=== PATIENT | female | born 1990 | race Caucasian/White ===

== ENCOUNTER 2018-10-31 07:30 | Inpatient (IN) | payer MEDICAID, SELFPAY ==
[2016-11-30 11:16] VITALS: BMI 33.2
[2018-10-31] VITALS (12 sets, daily range): BP systolic 111–126; BP diastolic 61–81; PULSE 68–97; RESP 16–18; TEMP 36.2–36.6; O2SAT 96–99; BMI 34.4
[2018-10-31] MEDS: Lactated Ringers 1,000 ML 50 ML IV (08:00)
[2018-10-31] MEDS: Oxytocin 30 units/NS 500 ml 30 UNITS/500 ML IV.SOLN IV (08:27)
[2018-10-31 08:37] LABS: Absolute Lymphocyte Count 1.93 X10^3/uL (0.83-4.51); Absolute Neutrophil Count 7.9 X10^3/uL (2.0-7.7); Basophil# 0.06 X10^3/uL; Basophil% 0.5 % (0-1); Eosinophil# 0.25 X10^3/uL; Eosinophils% 2.2 % (0-5); Hemoglobin 10.1 g/dL (12.0-15.0); Lymphocyte # 1.93 X10^3/ul (4.0); Lymphocyte % 17.1 % (19-41); Mean Corp Hgb Conc 31.6 g/dL (32-36); Mean Corpuscular Hgb 26.1 pg (27.0-32.0); Mean Corpuscular Volume 82.7 fL (81-99); Mean Platelet Vol. 9.7 fl (6.2-12.0); Monocyte# 0.95 X10^3/uL; Monocyte% 8.4 % (0-10); NRBC Flagged by Analyzer 0 % (0-5); Neutrophil # 7.86 X10^3/uL (2.7-7.7); Neutrophil % 69.5 % (47-70); Platelet Count 234 K/mm3 (150-450); RBC Distribution Width CV 15.8 % (11.6-14.6); RBC Distribution Width SD 47.6 fl (35.1-43.9); Red Blood Count 3.87 M/mm3 (4.2-5.4); White Blood Count 11.3 K/mm3 (4.4-11.0)
[2018-10-31] MEDS: Lactated Ringers 500 ML 999 ML IV (11:38)
[2018-10-31] MEDS: fentaNYL-bupivacaine (epidural) 100 ML BAG EPIDURAL (12:38)
[2018-10-31] MEDS: Oxytocin 30 units/NS 500 ml 30 UNITS/500 ML IV.SOLN 334 UNITS IV (13:44)
--- NOTE | 2018-10-31 13:53 | PCM.HP.OB ---
History Date of Admission: 11/30/16 Final CHELY: 11/06/18 Final CHELY Source: US <20 weeks Gestational age: 39 Weeks and 1 Days History of this : This is a 28 year-old, [id number] at 39 1/7 weeks for induction of labor due to maternal discomfort and favorable cervix. She denies any gross vaginal bleeding or leaking of fluid. She has had good movements. This has been complicated to date by anemia, and tobacco use in . She is had a history of 3 previous vaginal deliveries. Had some irregular contractions, some low back pain and some pelvic pressure. Allergies No Known Allergies Allergy (Verified 11/30/16 11:14) Home Medications: Home Medications Pnv No.95/Ferrous Fum/Folic AC [ Vitamins Tablet] 1 each PO DAILY 11/30/16 Acetaminophen [Tylenol] 1,000 mg PO Q8H PRN PRN tablet 12/01/16 Ferrous Sulfate [Iron] 325 mg PO BID 10/31/18 Smoking Status: Heavy Smoker (>10/day) Alcohol: None Number of Fetus(es): 1 History Past Pregnancies: Past Pregnancies Delivery Date Name GA/Weeks Outcome Route Weight Gender Labor Length Anesthesia Delivery Location Provider FOB Expected Infant Delivery Method: Spontaneous Vaginal Review of Systems Constitutional: Denies: Chills, Fever Eyes: Denies: Blurred vision Cardiovascular: Denies: Chest Pain Respiratory: Denies: Cough, Shortness of Breath Hematologic/ Lymphatic: Reports: Anemia. Denies: Easy Bruising, Easy Bleeding Physical Exam General: Alert, Cooperative, No apparent distress Cardiovascular: Regular rate Lungs: Normal air movement Abdomen: Soft, Non Tender, Non-Distended, Gravid, Appropriate for Gestational Age Extremities:: Other - edema1+ Neurological: Cranial nerves II-XII grossly intact IMAGE ASSEMBLER: Vulvar lesions - condyloma noted on labia majora bilaterally Estimated gestational size: Appropriate for gestational size Presentation: Cephalic Cervix Dilation (cm): 3 Station: -1 Effacement (%): 60 Assessment/Plan This is a 28 year-old, 4 para 2-1-0-3 at 39 1/7 weeks for induction of labor. Risk benefits and alternatives to induction been discussed with the patient, consent was signed and she desired to proceed. May have epidural if desires. Estimated weight is less than 4500 g clinically and pelvis clinically adequate to expect vaginal delivery. Patient would like to have tubal ligation. Discussed with her this is permanent and irreversible risk of failure and regret. We also discussed surgical complications. Patient would like to proceed with this. We will proceed if acuity of unit and anesthesia availability allows.
--- NOTE | 2018-10-31 13:59 | PCM.OPRPT ---
Vaginal Delivery Maternal Presentation: Elective Induction Method of Induction: Pitocin, Amniotomy Amniotic Membrane Rupture Type: Artificial Amniotic Fluid Description: Clear Final CHELY: 11/06/18 Final CHELY Source: US <20 weeks Gestational age: 39 Weeks and 1 Days Date of Procedure: 10/31/18 Pre-Operative Diagnosis: labor Post-Operative Diagnosis: same Surgery/ Procedure Performed: Spontaneous Vaginal Delivery Type of Anesthesia: Epidural Description of Procedure: A vigorous female was delivered SAMANTA over intact perineum. Shilpi Rudolph MS3 assisted. The remainder the was delivered with maternal pushing and gentle traction only in less than 15 seconds. The Pitocin infusion was initiated for active management of the third stage. The cord was clamped and cut after 1 minute. The was attended to by the waiting nursing staff. The placenta was delivered spontaneously and intact. The cervix and vagina were intact. Sponge and needle counts were correct. A vaginal sweep was completed by me. Presentation: SAMANTA Placental Delivery Description: Spontaneous Placenta Disposition: [facility] Cord Entanglement: None Drain: - - none Estimated Blood Loss: 300 A gender: Female (1 minute): 8 (5 minute): 9 Episiotomy Description: None Laceration: None Medications given after delivery: IV Pitocin Complications: None
--- NOTE | 2018-10-31 17:00 | FALS_PTH ---
PATIENT: ALBER VIVAS LOC: [facility] U#:[id number] AGE/SX: 28/F ROOM: WP019 RE10/31/[address]: Dr. Valeria Bowens MD : 1990 BED: 1 DIS: 11/01/2018 SPEC #: [id number] RECD: 10/31/18 18:42 STATUS: MELY REOsmany #: [id number] JATIN: 10/31/18 17:[address]: Valeria Bowens DEPT: SURGICAL PATHOLOGY RECD BY: Nina Saenz ENTERED: 11/01/18 09:12 SP TYPE: FALL TUBES OTHR DR: No Primary Care Phys Tissues: Fallopian tube Procedures: Surgery Specimen Level II HEADER OPERATION: Tubal Ligation PRE-OP DIAGNOSIS: Sterilization TISSUE SUBMITTED: Fallopian tube, left with suture MICROSCOPIC DIAGNOSIS Right and left fallopian tubes, bilateral salpingectomies: Two complete segments of fallopian tubes with no pathologic change. AM:ricci 11/02/18 MICROSCOPIC DESCRIPTION Slides are reviewed. GROSS DESCRIPTION Received is one container labeled with the patient's name and designated bilateral fallopian tubes, left with suture. The specimen consists of two fallopian tubes with an average length of 4.8 cm and has an average diameter of 0.6 cm. Both fallopian tubes have normal fimbriated ends. No mass lesions are identified. Search Planner sections are submitted in two cassettes as follows: 1 - right fallopian tube, 2??left fallopian tube. / AM:ricci 11/01/18 TC:4 CPT: 95688 x2
--- NOTE | 2018-10-31 17:34 | PCM.OPRPT ---
Report of Operation Date of Procedure: 10/31/18 Pre-Operative Diagnosis: sterilization request Post-Operative Diagnosis: same Surgery/Procedure Performed:: bilateral salpingectomy Description of Surgical Findings:: normal ovaries and tubes it security administrator: None Type of Anesthesia:: MAC/Supplemental/Local Anesthesiologist: Natividad Maxwell Special Medications: none Specimen's removed: bilateral fallopian tubes Drains: none Estimated Blood Loss (mL): 20 Fluids Replaced: 500cc Description of Procedure: The patient was taken to the operating room where she was prepped and draped in a dorsal supine position. Some local anesthetic was placed under the skin under the umbilicus and a 4 cm incision was made under the umbilicus. This was carried through to underlying layer fascia with the scalpel. The fascia was grasped with Allis clamps and tented up. It was entered sharply with the scalpel and then extended with the Mccullough scissors. It was tagged on both sides. The peritoneum was then tented up and entered sharply. The bowel was tucked away the patient was tucked turned with her right side up and using retractors and a [place] clamp, the fallopian tube was identified and followed out to the fimbriated end. The LigaSure device was then used to clamp seal and transect the antimesenteric portion of the tube back to the insertion along the uterus. Patient was then used to clamp across the insertion of the tube in the uterus, it was sealed and transected. The pedicles were hemostatic. The same procedures performed on the contralateral side. The instruments removed from the abdomen. The fascia was closed with #1 Vicryl in a running standard fashion. The subtenons tissue was reapproximated with a 3-0 Vicryl suture. The skin was closed with Monocryl suture in subcuticular fashion. I performed the entire procedure. Sponge lap and needle counts were correct. Grafts/Implants Used: none - Complications none - Admit VTE Documentation VTE Present on Admission: No VTE Mechan Device Prophylaxis: SCD's VTE Pharm Prophylaxis ordered?: No Reason prophylaxis not ordered:: Procedure Not Indicated
[2018-10-31 18:44] LABS: Pathology Specimen OB SEE PATHOLOGY REPORT
--- NOTE | 2018-10-31 19:19 | NURSING ---
Pt up to RR. Gait steady.
--- NOTE | 2018-10-31 20:20 | NURSING ---
Pt requesting to go outside. Discussed with broker in charge and Dr. Bowens and okay with pt singing out if desires. Pain well controlled and up ad archie. Discussed risks of removing saline lock and pt agree to have removed. Talked with pt about possibly needing to reinsert if needed. Educated on signing out at desk. Pt verbalizes understanding, SL removed.
[2018-10-31] MEDS: Ibuprofen 600 MG Tablet PO (21:00)
[2018-11-01 02:05] VITALS: BP 110/59; PULSE 74; RESP 16; TEMP 36.4; O2SAT 97
[2018-11-01 04:55] VITALS: BP 105/57; PULSE 79; RESP 16; TEMP 36.6; O2SAT 96
[2018-11-01 05:17] LABS: Hemoglobin 8.6 g/dL (12.0-15.0); Mean Corp Hgb Conc 31.9 g/dL (32-36); Mean Corpuscular Hgb 26.5 pg (27.0-32.0); Mean Corpuscular Volume 83.1 fL (81-99); Mean Platelet Vol. 9.6 fl (6.2-12.0); Platelet Count 185 K/mm3 (150-450); RBC Distribution Width CV 15.7 % (11.6-14.6); RBC Distribution Width SD 47.7 fl (35.1-43.9); Red Blood Count 3.25 M/mm3 (4.2-5.4); White Blood Count 11.8 K/mm3 (4.4-11.0)
[2018-11-01] MEDS: Acetaminophen 500 MG Tablet 1000 MG PO (05:17)
--- NOTE | 2018-11-01 08:36 | PCM.PN.OB ---
Subjective: She is seen at bedside, doing well. Patient reports good pain control. Mild lochia. Denies any nausea, vomiting, chest pain, shortness of breath. Patient is ready for DC home today. voiding without difficulty - Physical Exam General: Alert, Oriented x3 Abdomen: Soft, Non-Distended, - - tubal ligation dressing is dry and intact. Fundus is firm Extremities: No Calf Tenderness Vital Signs Temp Pulse Resp BP Pulse Ox 97.9 F 79 16 105/57 L 96 11/01/18 04:55 11/01/18 04:55 11/01/18 04:55 11/01/18 04:55 11/01/18 04:55 Oxygen Delivery Method Room Air Weight: 94 kg Body Mass Index (BMI) 34.4 Intake and Output for Last 24 Hours 10/30/18 10/31/18 11/01/18 23:59 23:59 23:59 Intake Total 2895.35 / 2895.35 Output Total 900 / 900 Balance 1994.35 / 1994.35 Laboratory Tests Past 24 Hrs 10/31/18 10/31/18 11/01/18 08:00 08:00 05:00 WBC 11.3 H 11.8 H RBC 3.87 L 3.25 L Hgb 10.1 L 8.6 L Hct 32.0 L 27.0 L MCV 82.7 83.1 MCH 26.1 L 26.5 L MCHC 31.6 L 31.9 L RDW Std Deviation 47.6 H 47.7 H RDW Coeff of Alicia 15.8 H 15.7 H Plt Count 234 185 MPV 9.7 9.6 Immature Gran % (Auto) 2.300 H Neut % (Auto) 69.5 Lymph % (Auto) 17.1 L [place] % (Auto) 8.4 Eos % (Auto) 2.2 Baso % (Auto) 0.5 Absolute Neuts (auto) 7.9 H Absolute Lymphs (auto) 1.93 Nucleated RBC % 0 Blood Type A POSITIVE Antibody Screen NEGATIVE Medical Necessity - Tobacco Use Smoking Status: Heavy Smoker (>10/day) Assessment/Plan day #1, postop day #1 from a tubal ligation Routine care Pain management DC home today
--- NOTE | 2018-11-01 08:39 | DCINST_ITS ---
Discharge Diet: No Restrictions Discharge Activity: Return to Normal Activity, May not drive while taking narcotic pain medications., May Shower May resume sexual activity in: 4-6 weeks Lifting Restrictions: 20 Additional Activity Instructions:: Nothing in the vagina for 4-6 weeks. You may return to work/school in 6 weeks. Call your doctor if your incision/area has: Continuous Slow Oozing, Sudden Increased Bleeding, Increased Pain/ Swelling, Increased Redness, Foul Smelling Discharge Remove Dressing in (days):: 2 - days Cleanse incision/area with: Keep Dressing Clean & Dry, - - when dressing of may let soap and water run over incision site - dab to dry Additional Instructions: If you experience any of the following, contact your healthcare provider. * Bleeding that soaks a pad every hour for 2 hours * Fever 100.4 or higher * Unrelieved incision or abdominal pain * Swelling, redness, discharge or bleeding from your incision or episiotomy site * Your incision begins to separate * Problems urinating (including inability to urinate or burning while urinating). * Visual changes * Severe headache * Flu-like symptoms * Pain or redness in one of both of your breasts * Pain, warmth, tenderness or swelling in your legs, especially the calf area * Frequent nausea and vomiting * Symptoms of depression or anxiety If you experience any of the following, call 911 or go to the nearest Emergency Room. * Chest pain * Problems breathing * Seizure activity * Partial or complete paralysis of a body part, slurred speech, weakness or drooping of the face, or a sudden inability to walk or hold your balance Allergies/Adverse Reactions: Allergies No Known Allergies Allergy (Verified 11/30/16 11:14) Medications to take at Discharge Pnv No.95/Ferrous Fum/Folic AC [ Vitamins Tablet] 1 each PO DAILY 11/30/16 Acetaminophen [Tylenol] 1,000 mg PO Q8H PRN PRN tablet 12/01/16 Ferrous Sulfate [Iron] 325 mg PO BID 10/31/18 Ibuprofen [Motrin] 600 mg PO Q6H PRN PRN #30 tab 11/01/18 The following prescriptions were given: Ibuprofen [Motrin] 600 mg PO Q6H PRN PRN #30 tab PRN Reason: Mild Pain (-04/23) Transmission Status: Pending to [facility]/pharmacy #[id number] When: Call to make an appointment with your doctor in 6 weeks. If you had elevated Blood Pressure or 4th degree laceration you will need to be seen in 2 weeks. Please Follow Up With: Valeria Bowens MD Primary Care Physician: Care Physician,No Primary [Primary Care Provider] - Test Results: Test results from this visit will be discussed in further detail at your follow- up appointment, if applicable.
[2018-11-01 08:50] VITALS: BP 139/63; PULSE 83; RESP 16; TEMP 36.1
[2018-11-01 11:53] VITALS: BP 124/82; PULSE 86; RESP 16; TEMP 36.6
[2018-11-01] MEDS: Ibuprofen 600 MG Tablet PO (15:05)
[2018-11-01 16:05] VITALS: BP 111/73; PULSE 88; RESP 14; TEMP 36.3
== END 2018-11-01 19:30 | disposition home or self-care (01) | DRG 541 ==
PROVIDERS: Admitting Provider Obstetrics & Gynecology; Referring Provider Obstetrics & Gynecology; Visit Provider Obstetrics & Gynecology
DX: O99.02 Anemia complicating childbirth (principal); D64.9 Anemia, unspecified; Z30.2 Encounter for sterilization; O99.334 Smoking (tobacco) complicating childbirth; F17.200 Nicotine dependence, unspecified, uncomplicated; Z79.899 Other long term (current) drug therapy; Z3A.39 39 weeks gestation of pregnancy; Z37.0 Single live birth
CPT/HCPCS: 59025; 59050; 85025; 85027; 86850; 86900; 86901; 88302; 99218; J7120; G0378